=== PATIENT | female | born 1970 | race African-American/Black ===

== ENCOUNTER 2018-07-29 17:11 | Inpatient (IN) | payer MEDICAID, OTHER ==
[~2018-07-29] VITALS: Ht 152.4 cm; Wt 57.2 kg
[2018-07-29 21:23] LABS: CHLORIDE 111 mEq/L (98-107); PROTHROMBIN TIME 10.8 sec (9.6-11.0)
[2018-07-29 21:27] LABS: ETHANOL BLOOD < 10 mg/dL
[2018-07-29 21:30] LABS: LDL CHOLESTEROL 82 mg/dL (5-100)
[2018-07-29] MEDS ORDERED: DEXTROSE 50% WATER 50ML SYRINGE IV ONE (21:30)
[2018-07-29] MEDS ORDERED: CLONIDINE 0.1MG TABLET PO PRN (23:30)
[2018-07-29] MEDS ORDERED: ONDANSETRON HCL 4MG/2ML INJ IV ONE (23:30)
[2018-07-29] MEDS ORDERED: ACETAMINOPHEN 325MG TABLET PO PRN (23:30)
[2018-07-29] MEDS ORDERED: ONDANSETRON HCL 4MG/2ML INJ IV PRN (23:30)
[2018-07-29] MEDS ORDERED: MAGNESIUM/ALUMINUM HYDROXIDE/SIMETHICONE 30ML UDC PO PRN (23:30)
[2018-07-29] MEDS ORDERED: DOCUSATE SODIUM 100MG CAPSULE PO PRN (23:30)
[2018-07-29] MEDS ORDERED: IPRATROPIUM/ALBUTEROL 0.5-3(2.5)MG/3ML NEB INH PRN (23:30)
[2018-07-29] MEDS ORDERED: MORPHINE SULFATE 4 MG/ML CPJ (NOT FOR IM USE) IV ONE (23:30)
[2018-07-29 23:53] LABS: BASOPHILS % 0.7 % (0.0-2.0); EOSINOPHILS % 1.5 % (0.0-5.0); HEMATOCRIT. 32.2 % (36.0-48.0); HEMOGLOBIN. 10.8 g/dL (12.0-16.0); LYMPHOCYTES % 35.7 % (20.0-50.0); MEAN PLATELET VOLUME 7.6 fl (7.4-10.4); MONOCYTES % 7.3 % (2.0-8.0); NEUTROPHILS % 54.8 % (40.0-76.0); PLATELET 230 x1000/uL (130-400); RED BLOOD CELL COUNT 3.74 mill/uL (4.2-5.4); RED CELL DISTRIBUTION WIDTH 13.8 % (11.6-14.6)
[2018-07-30] MEDS ORDERED: HYDROCODONE/ACETAMINOPHEN 5/325MG TABLET PO PRN (02:02)
[2018-07-30 03:06] VITALS: BP 132/89
[2018-07-30] MEDS ORDERED: OXYC-104 MT (04:00)
[2018-07-30] MEDS ORDERED: HYDR12.529 PO (04:00)
[2018-07-30] MEDS ORDERED: FLUO10CA25 PO (04:00)
[2018-07-30] MEDS ORDERED: ZOLP10TA2 PO (04:00)
[2018-07-30] MEDS ORDERED: DOCU-138 PO (04:00)
[2018-07-30] MEDS ORDERED: DIPH25CA83 PO (04:00)
[2018-07-30] MEDS ORDERED: ALPR2TAB2 PO (04:22)
[2018-07-30 08:00] VITALS: BP 143/79
[2018-07-30] MEDS ORDERED: DIPHENHYDRAMINE 50MG/ML VIAL IM PRN (08:15)
[2018-07-30] MEDS ORDERED: OXYCODONE HCL/ACETAMINOPHEN 5/325MG TABLET PO PRN (08:30)
[2018-07-30] MEDS ORDERED: HYDROMORPHONE HCL/PF 2MG/ML CPJ IV PRN (08:30)
[2018-07-30] MEDS ORDERED: ENOXAPARIN 40MG/0.4ML SYR SUBCUT SCH (09:00)
[2018-07-30 09:06] VITALS: BP 132/89
[2018-07-30] MEDS ORDERED: DIPHENHYDRAMINE 50MG/ML VIAL IV PRN (14:15)
== END 2018-07-30 10:18 | disposition left against medical advice (07) | DRG 552 ==
LOC: ER 17:11 → 7WST 23:45 → EDBEDREQ 23:48 → EDBEDREQSVC 23:48 → EDBEDREQTM 23:48 → ENRESERV 07-30 02:23
PROVIDERS: ADMIT Internal Medicine; ATTEND Internal Medicine
DX: M54.2 Cervicalgia (principal); I10 Essential (primary) hypertension; G89.29 Other chronic pain; D64.9 Anemia, unspecified; Z53.21 Procedure and treatment not carried out due to patient leaving prior to being seen by health care provider; F41.9 Anxiety disorder, unspecified; Z91.81 History of falling
CPT/HCPCS: 36415; 71045; 72128; 80320; 82962; 83721; 84484; 93005; 93970; 96374; 96375; 99285; J1650; J2270; J2405; G0480

== ENCOUNTER 2020-11-02 19:15 | Emergency (ER) | payer OTHER ==
[~2020-11-02] VITALS: Ht 152.4 cm; Wt 55.0 kg
[~2020-11-02 19:15] MED LIST: ALPR2TAB2 PO; DIPH25CA83 PO; DOCU-138 PO; FLUO10CA25 PO; HYDR12.529 PO; OXYC-104 MT; ZOLP10TA2 PO
[2020-11-02 20:55] VITALS: BP 181/96
== END 2020-11-02 21:15 | disposition home or self-care (01) ==
LOC: ER 20:16
DX: F41.9 Anxiety disorder, unspecified (principal); I10 Essential (primary) hypertension; Z88.0 Allergy status to penicillin; Z88.5 Allergy status to narcotic agent; Z91.040 Latex allergy status; Z79.899 Other long term (current) drug therapy; Z98.890 Other specified postprocedural states
CPT/HCPCS: 99283